=== PATIENT | female | born 1945 | race Caucasian/White ===

== ENCOUNTER 2024-07-23 19:56 | Inpatient (IN) | payer MEDICARE, OTHER ==
[2024-07-23 20:35] LABS: Basophils # (A) 0.09 10*3/uL (0.00-0.10); Basophils % (A) 0.4 %; Eosinophils # (A) 0.09 10*3/uL (0.04-0.35); Eosinophils % (A) 0.4 %; HGB 13.9 g/dL (12.0-15.0); Lymphocytes # (A) 1.77 10*3/uL (0.90-5.00); Lymphocytes % (A) 7.4 %; MCH 31.7 pg (27.0-32.0); MCHC 33.1 g/dL (32.0-37.0); MCV 95.7 fL (80.0-97.0); Mean Platelet Volume 9.6 fL (9.5-12.2); Monocytes % (A) 7.5 %; Neutrophils # (A) 20.07 10*3/uL (1.80-7.70); Neutrophils % (A) 83.8 %; Platelet Count 208 10*3/uL (140-440); RBC 4.39 10*6/uL (4.10-5.20); RDW 13.4 % (11.5-14.5); WBC 23.94 10*3/uL (4.50-10.00)
--- NOTE | 2024-07-23 20:44 | ED ---
General Adult HPI - General Chief complaint: Shortness of Breath Stated complaint: difficulty breathing Time Seen by Provider: 07/23/24 20:02 Source: patient, RN notes reviewed, old records reviewed Mode of arrival: EMS Limitations: no limitations - History of Present Illness Initial comments: 78-year-old female history of asthma COPD presenting for evaluation of cough, dyspnea, fever. Patient states 2 weeks ago she was diagnosed with RSV and COPD exacerbation. She was put on steroids, as well as doxycycline. She states she did improve from this and then over the past 24 hours she developed a worsening cough and fever. Patient was sent over from primary care for evaluation. She denies central chest pain. She does report bilateral lower extremity edema which is chronic and unchanged from baseline. Her cough is productive of yellow sputum. - Related Data Home Medications Medication Instructions Recorded Confirmed Albuterol Inhaler [Ventolin Hfa 2 puff INHALATION RT-Q6H PRN 07/23/24 07/23/24 Inhaler] Budesonide [Pulmicort] 0.5 mg INHALATION RT-BID 07/23/24 07/23/24 Budesonide/Glycopyr/Formoterol 1 puff INHALATION RT-DAILY 07/23/24 07/23/24 [Breztri Aerosphere Inhaler] Cranberry 4,200mg 4,200 mg PO DAILY 07/23/24 07/23/24 EPINEPHrine (Auto Inject) [Epipen] 0.3 mg IM ONCE PRN 07/23/24 07/23/24 Fexofenadine HCl [Karen Allergy] 180 mg PO DAILY PRN 07/23/24 07/23/24 Fish Oil/Dha/Epa [Fish Oil 1,200 1 cap PO DAILY 07/23/24 07/23/24 mg Fish Oil] Furosemide [Lasix] 40 mg PO DAILY 07/23/24 07/23/24 Ipratropium-Albuterol Nebulize 3 ml INHALATION RT-QID PRN 07/23/24 07/23/24 [Duoneb 0.5 mg-3 mg/3 ml Soln] Losartan Potassium [Cozaar] 100 mg PO DAILY 07/23/24 07/23/24 Magnesium 30mg 30 mg PO BID 07/23/24 07/23/24 Mepolizumab [Nucala] 1 dose SQ DIRECTED 07/23/24 07/23/24 Montelukast [Singulair] 10 mg PO DAILY 07/23/24 07/23/24 Multivitamins, Thera [Multivitamin 1 tab PO DAILY 07/23/24 07/23/24 (formulary)] Omeprazole 20 mg PO DAILY 07/23/24 07/23/24 Tolterodine ER [Detrol LA] 4 mg PO DAILY 07/23/24 07/23/24 Ubidecarenone [Coenzyme Q10] 200 mg PO DAILY 07/23/24 07/23/24 Vitamin D3 Complete 1 tab PO DAILY 07/23/24 07/23/24 amLODIPine [Norvasc] 10 mg PO DAILY 07/23/24 07/23/24 traMADol HCL 50 mg PO Q8H PRN 07/23/24 07/23/24 Allergies Allergy/AdvReac Type Severity Reaction Status Date / Time cephalexin Allergy Anaphylaxis Verified 07/23/24 20:28 clarithromycin Allergy Anaphylaxis Verified 07/23/24 20:28 penicillin V Allergy Swelling Verified 07/23/24 20:28 Penicillins Allergy Anaphylaxis Verified 07/23/24 20:28 ranitidine [From Zantac] Allergy Nausea & Verified 07/23/24 20:28 Vomiting & Diarrhea Review of Systems ROS Statement: Those systems with pertinent positive or pertinent negative responses have been documented in the HPI. ROS Other: All systems not noted in ROS Statement are negative. Past Medical History Past Medical History: Asthma, COPD, Deep Vein Thrombosis (DVT), Hypertension, Sleep Apnea/CPAP/BIPAP History of Any Multi-Drug Resistant Organisms: None Reported Past Psychological History: No Psychological Hx Reported Smoking Status: Never smoker Past Alcohol Use History: None Reported Past Drug Use History: None Reported General Exam General appearance: alert, in no apparent distress Head exam: Present: atraumatic, normocephalic Eye exam: Present: normal appearance, PERRL ENT exam: Present: normal exam Neck exam: Present: normal inspection Respiratory exam: Present: respiratory distress, wheezes, decreased breath sounds Cardiovascular Exam: Present: normal rhythm, tachycardia GI/Abdominal exam: Present: soft. Absent: distended, tenderness, guarding Extremities exam: Present: pedal edema Neurological exam: Present: alert, oriented X3, CN II-XII intact. Absent: motor sensory deficit Psychiatric exam: Present: normal affect, normal mood Skin exam: Present: warm, dry, intact. Absent: cyanosis, diaphoretic Course Vital Signs 07/23/24 07/23/24 07/23/24 20:01 20:09 20:52 Temperature 100.6 F H Pulse Rate 111 H 106 H Respiratory 22 22 22 Rate Blood Pressure 118/66 114/56 O2 Sat by Pulse 93 L 95 Oximetry 07/23/24 07/23/24 21:16 21:23 Temperature Pulse Rate 84 100 Respiratory Rate Blood Pressure O2 Sat by Pulse Oximetry Medical Decision Making - Medical Decision Making Was pt. sent in by a medical professional or institution (, [facility], [facility] INT[facility]IVE [facility]ARE [facility] NURSE, urgent care, hospital, or snf...) When possible be specific @ -No Did you speak to anyone other than the patient for history (EMS, parent, family, police, friend...)? What history was obtained from this source @ -No Did you review nursing and triage notes (agree or disagree)? Why? @ -I reviewed and agree with nursing and triage notes Were old charts reviewed (outside hosp., previous admission, EMS record, old EKG, old radiological studies, urgent care reports/EKG's, snf records)? Report findings @ -No old charts were reviewed Differential Dyspnea: Coronary syndrome, arrhythmia, tamponade, asthma, COPD, pulmonary embolism, pneumonia, pneumothorax, pulmonary effusion, anaphylaxis, diabetic ketoacidosis, flailed chest, pulmonary contusion, diaphragmatic rupture, anemia, neuromuscular, this is not meant to be an all-inclusive list. EKG interpreted by me (3pts min.). @Sinus tachycardia rate of 109, OH interval 150, QRS duration 101, QTc 384, PVC present no ST segment elevation. X-rays interpreted by me (1pt min.). @ -Chest x-ray shows left lower lobe infiltrate CT interpreted by me (1pt min.). @ -None done U/S interpreted by me (1pt. min.). @ -None done What testing was considered but not performed or refused? (CT, X-rays, U/S, labs )? Why? @ -None What meds were considered but not given or refused? Why? @ -None Did you discuss the management of the patient with other professionals (professionals i.e. [facility] Turner, [facility] NURSE, lab, RT, psych nurse, social science teacher, apartment community assistant manager, teacher, hospital chief financial officer, director case management)? Give summary @ -Sound physician group Was smoking cessation discussed for >3mins.? @ -No Was critical care preformed (if so, how long)? @Yes, 35 minutes Were there social determinants of health that impacted care today? How? ( Homelessness, low income, unemployed, alcoholism, drug addiction, transportation, low edu. Level, literacy, decrease access to med. care, correction, rehab)? @ -No Was there de-escalation of care discussed even if they declined (Discuss DNR or withdrawal of care, Hospice)? DNR status @ -No What co-morbidities impacted this encounter? (DM, HTN, Smoking, COPD, CAD, Cancer, CVA, ARF, Chemo, Hep., AIDS, mental health diagnosis, sleep apnea, morbid obesity)? @ -Asthma COPD Was patient admitted / discharged? Hospital course, mention meds given and route, prescriptions, significant lab abnormalities, going to OR and other pertinent info. @78-year-old female presenting with cough, fever. Patient is bronchospastic and in moderate respiratory distress. Cough is productive of sputum. X-ray concerning for developing pneumonia. Patient has a significantly elevated white blood cell count at 23,000. She has a lactic acid of 3.3. Normal troponin, normal BMP. Patient admitted for COPD exacerbation and pneumonia with sepsis. Patient does have significant medication allergies and is started on Levaquin in the emergency department. Undiagnosed new problem with uncertain prognosis? @ -No Drug Therapy requiring intensive monitoring for toxicity (Heparin, Nitro, Insulin, Cardizem)? @ -No Were any procedures done? @ -No Diagnosis/symptom? @ -[Pneumonia, sepsis, COPD exacerbation Acute, or Chronic, or Acute on Chronic? @ -Acute Uncomplicated (without systemic symptoms) or Complicated (systemic symptoms)? @Complicated Side effects of treatment? @ -No Exacerbation, Progression, or Severe Exacerbation? @ -No Poses a threat to life or bodily function? How? (Chest pain, [place], [place], pneumonia, PE, COPD, DKA, ARF, appy, cholecystitis, CVA, Diverticulitis, Homicidal, Suicidal, threat to staff... and all critical care pts) @ -[Yes, sepsis, respiratory failure - Lab Data Result diagrams: 07/23/24 20:22 07/23/24 20:22 Lab Results 06/08/1107/23/24 07/23/24 Range/Units 20:22 20:22 20:22 WBC 23.94 H (4.50-10.00) 10*3/uL RBC 4.39 (4.10-5.20) 10*6/uL Hgb 13.9 (12.0-15.0) g/dL Hct 42.0 (37.2-46.3) % MCV 95.7 (80.0-97.0) fL MCH 31.7 (27.0-32.0) pg MCHC 33.1 (32.0-37.0) g/dL Plt Count 208 (140-440) 10*3/uL MPV 9.6 (9.5-12.2) fL Immature Gran % (Auto) 0.5 % Neutrophils % 83.8 % Lymphocytes % 7.4 % Monocytes % 7.5 % Eosinophils % 0.4 % Basophils % 0.4 % Immature Gran # 0.12 H (0.00-0.04) 10*3/uL Neutrophils # 20.07 H (1.80-7.70) 10*3/uL Lymphocytes # 1.77 (0.90-5.00) 10*3/uL Monocytes # 1.80 H (0.20-1.00) 10*3/uL Eosinophils # 0.09 (0.04-0.35) 10*3/uL Basophils # 0.09 (0.00-0.10) 10*3/uL PT 11.3 (10.0-12.5) sec INR 1.0 (<1.2) APTT 20.4 L (22.0-30.0) sec Sodium 136 L (137-145) mmol/L Potassium 4.0 (3.5-5.1) mmol/L Chloride 101 (98-107) mmol/L Carbon Dioxide 24 (22-30) mmol/L Anion Gap 11 mmol/L BUN 14 (7-17) mg/dL Creatinine 0.63 (0.52-1.04) mg/dL Est GFR (CKD-EPI)AfAm >90 (>60 ml/min/1.73 sqM) Est GFR (CKD-EPI)NonAf 86 (>60 ml/min/1.73 sqM) Glucose 119 H (74-99) mg/dL Plasma Lactic Acid Ted (0.7-2.0) mmol/L Calcium 8.7 (8.4-10.2) mg/dL Magnesium 1.8 (1.6-2.3) mg/dL Total Bilirubin 2.1 H (0.2-1.3) mg/dL AST 45 H (14-36) U/L ALT 22 (4-34) U/L Alkaline Phosphatase 94 (38-126) U/L Troponin I (0.000-0.034) ng/mL NT-Pro-B Natriuret Pep 183 pg/mL Total Protein 7.8 (6.3-8.2) g/dL Albumin 4.3 (3.5-5.0) g/dL Influenza Type A (PCR) (Not Detectd) Influenza Type B (PCR) (Not Detectd) RSV (PCR) (Not Detectd) SARS-CoV-2 (PCR) (Not Detectd) 07/23/24 07/23/24 07/23/24 Range/Units 20:22 20:22 20:22 WBC (4.50-10.00) 10*3/uL RBC (4.10-5.20) 10*6/uL Hgb (12.0-15.0) g/dL Hct (37.2-46.3) % MCV (80.0-97.0) fL MCH (27.0-32.0) pg MCHC (32.0-37.0) g/dL Plt Count (140-440) 10*3/uL MPV (9.5-12.2) fL Immature Gran % (Auto) % Neutrophils % % Lymphocytes % % Monocytes % % Eosinophils % % Basophils % % Immature Gran # (0.00-0.04) 10*3/uL Neutrophils # (1.80-7.70) 10*3/uL Lymphocytes # (0.90-5.00) 10*3/uL Monocytes # (0.20-1.00) 10*3/uL Eosinophils # (0.04-0.35) 10*3/uL Basophils # (0.00-0.10) 10*3/uL PT (10.0-12.5) sec INR (<1.2) APTT (22.0-30.0) sec Sodium (137-145) mmol/L Potassium (3.5-5.1) mmol/L Chloride (98-107) mmol/L Carbon Dioxide (22-30) mmol/L Anion Gap mmol/L BUN (7-17) mg/dL Creatinine (0.52-1.04) mg/dL Est GFR (CKD-EPI)AfAm (>60 ml/min/1.73 sqM) Est GFR (CKD-EPI)NonAf (>60 ml/min/1.73 sqM) Glucose (74-99) mg/dL Plasma Lactic Acid Ted 3.3 H* (0.7-2.0) mmol/L Calcium (8.4-10.2) mg/dL Magnesium (1.6-2.3) mg/dL Total Bilirubin (0.2-1.3) mg/dL AST (14-36) U/L ALT (4-34) U/L Alkaline Phosphatase (38-126) U/L Troponin I <0.012 (0.000-0.034) ng/mL NT-Pro-B Natriuret Pep pg/mL Total Protein (6.3-8.2) g/dL Albumin (3.5-5.0) g/dL Influenza Type A (PCR) Not Detected (Not Detectd) Influenza Type B (PCR) Not Detected (Not Detectd) RSV (PCR) Not Detected (Not Detectd) SARS-CoV-2 (PCR) Not Detected (Not Detectd) Critical Care Time Critical Care Time: Yes Total Critical Care Time: 35 Disposition Clinical Impression: Acute exacerbation of chronic obstructive pulmonary disease, Community acquired pneumonia Disposition: ADMITTED IP TO THIS [facility] Condition: Stable Is patient prescribed a controlled substance at d/c from ED?: No Referrals: Magy Mims DO [Primary Care Provider] - 1-2 days Time of Disposition: 21:30
[2024-07-23] MEDS: ACETAMINOPHEN TAB 500 MG TAB PO STA (20:54)
[2024-07-23] MEDS: methylPREDNISolone SOD SUCCI 125 MG/2 ML VIAL IV STA (20:55)
[2024-07-23 20:57] LABS: Partial Thromboplastin Time 20.4 sec (22.0-30.0); Prothrombin Time 11.3 sec (10.0-12.5)
[2024-07-23 20:58] LABS: ALT 22 U/L (4-34); African American GFR (CKD) >90 (>60 ml/min/1.73 sqM); Anion Gap 11 mmol/L; Blood Urea Nitrogen 14 mg/dL (7-17); Calcium 8.7 mg/dL (8.4-10.2); Carbon Dioxide 24 mmol/L (22-30); Chloride 101 mmol/L (98-107); Glucose 119 mg/dL (74-99); Non-African American GFR(CKD) 86 (>60 ml/min/1.73 sqM); Sodium 136 mmol/L (137-145)
[2024-07-23 20:59] LABS: Magnesium 1.8 mg/dL (1.6-2.3); Total Protein 7.8 g/dL (6.3-8.2)
[2024-07-23 21:00] LABS: AST 45 U/L (14-36); Albumin 4.3 g/dL (3.5-5.0); Alkaline Phosphatase 94 U/L (38-126); Total Bilirubin 2.1 mg/dL (0.2-1.3)
--- NOTE | 2024-07-23 21:02 | XR ---
EXAMINATION TYPE: XR chest 2V DATE OF EXAM: 07/23/2024 8:53 PM COMPARISON: None. CLINICAL INDICATION: Female, 78 years old with history of difficulty breathing, TECHNIQUE: XR chest 2V view(s) obtained. FINDINGS: The heart size is normal. The pulmonary vasculature is prominent. Minimal posterior pleural effusions are present. The lateral projection there may be some mild infilt rate posteriorly, likely on the left. Correlate for atelectasis and pneumonia. IMPRESSION: 1. Small posterior left lung infiltrate. Correlate for atelectasis or pneumonia. 2. Minimal posterior pleural effusion [facility], , 07/23/2024 9:00 PM
[2024-07-23 21:04] LABS: NT-Pro-B-Type Natriuretic Pept 183 pg/mL
[2024-07-23 21:11] LABS: Influenza A Not Detected (Not Detectd); Influenza B Not Detected (Not Detectd); RSV Not Detected (Not Detectd)
[2024-07-23] MEDS: ALBUTEROL NEBULIZED 2.5 MG/3 ML INHALATION STA (21:14)
[2024-07-23] MEDS: IPRATROPIUM-ALBUTEROL 3 ML NEB INHALATION STA (21:14)
[2024-07-23] MEDS: LEVOFLOXACIN 500MG-D5W PMX 500 MG in DEXTROSE/WATER 1 100ML.BAG IVPB STA (21:21)
[2024-07-23] MEDS: LACTATED RINGERS 500 ML IV ONE (21:24)
[2024-07-23] MEDS: LACTATED RINGERS 1,000 ML IV SCH (21:24)
[2024-07-23] MEDS ORDERED: NALOXONE 0.4 MG/ML 1 ML VIAL IVP PRN (21:27)
[2024-07-23] MEDS ORDERED: MEPOLIZUMAB 100 MG/ML SQ SCH (22:15)
[2024-07-23] MEDS ORDERED: AUTO INJCT SQ SCH (22:15)
--- NOTE | 2024-07-23 23:09 | P.HPIM ---
History of Present Illness H&P Date: 07/23/24 I have seen and evaluated the patient today. Discussed with the resident and agree with the residents finding and plan as documented in the resident's note. Changes highlighted in blue font. History of present illness; 78-year-old female PMH of hypertension, chronic hypoxic respiratory failure secondary to COPD (maintained at home on occasional use of 3 L nasal cannula), history of DVT who presents to the ED coming from her PCPs office with complaints of shortness of breath, fever and weakness started today. She states she was diagnosed with RSV on 07/09/2024, and was treated with doxycycline. She states she finished a course of medication 5 days ago, and followed up with her PCP yesterday at which point she was feeling much better. However, when she woke up this morning she had notable fatigue, fever and a persistent dry cough. Denies wheezing. Max temperature at home was 101.8 F. Social history: - Smoking history: Denies - Alcohol use: Social - Recreational drug use: Denies Labratory review: -WBC 23.94, hemoglobin 13.9, hematocrit 42.0, platelet 208; sodium 136, potassium 4.0, bicarb 24, BUN 14, creatinine 0.63, lactic acid 3.3, calcium 8.7, magnesium 1.8, total bilirubin 2.1, AST 45, ALT 22, alkaline phosphatase 94 - Troponin <0.012; proBNP 183 -Respiratory viral panel all negative Imaging: -Chest x-ray done in the ED showed a small posterior left lung infiltrate and a minimal posterior pleural effusion -EKG done in the ER independently read interpreted showed heart rate of 109, sinus tachycardia with occasional PVCs, no ST segment elevation or depression seen, no T-wave inversions seen. Vitals: - On arrival: Temperature 100.6 F, blood pressure 118/66, heart rate 111, respiratory 22, SpO2 93% on 3 L nasal cannula - Most recently: Blood pressure 114/56, heart rate 106, respiratory rate 22, SpO2 95% on 3 L of cannula Patient admitted to internal medicine service REVIEW OF SYSTEMS: Pertinent positives and negatives noted in HPI. The rest of the 14-point review of systems is negative. Physical Exam: General: nontoxic, no distress, appears at stated age Derm: warm, dry, intact Head: atraumatic, normocephalic, symmetric Eyes: EOMI, anicteric sclera Mouth: no lip lesion, mucus membranes moist Cardiovascular: S1 S2 reg, no murmur, rubs, or gallops Lungs: Coarse left-sided breath sounds Abdominal: soft, no appreciable organomegaly; tenderness to palpation of the right upper quadrant Extremities: no gross muscle atrophy, no edema, no contractures Neuro: Alert, Oriented, CNII-XII grossly intact, gait normal Psych: well appearing, appropriate affect Assessment and plan 78-year-old female PMH of hypertension, COPD, history of DVT who presents to the ED coming from her PCPs office with complaints of shortness of breath, fever and weakness started today. #Sepsis, likely secondary to community-acquired pneumonia #Lactic acidosis and leukocytosis, secondary to above - Chest x-ray showed evidence of small posterior left lung infiltrate - Continue with levofloxacin (if good clinical response within 2-3 days, total of 5-7 days of antibiotics) - Blood and sputum culture ordered, currently pending - Procalcitonin ordered, currently pending (can continue to monitor procalcitonin every 2 days to evaluate response) - Legionella antigen ordered, currently pending - Continue with LR at 130 cc/h #Mild COPD exacerbation, chronic hypoxic respiratory failure secondary to COPD maintained at home on occasional 3 L nasal cannula - Currently utilizing 3 L nasal cannula at all times to maintain saturations in the 90%'s - Continue DuoNebs every 4 hours and as needed - Continue home Pulmicort twice daily and albuterol inhaler every 6 hours as needed - Wean oxygen as tolerated, maintaining SPO2 88-92% #Hyperbilirubinemia and transaminitis - Right upper quadrant abdominal pain - Total bilirubin 2.1, AST 45 on arrival - Abdominal ultrasound ordered, currently pending - Continue monitor CMP Chronic conditions: #Hypertension #COPD (maintained at home on occasional use of 3 L nasal cannula), not currently in exacerbation #Eosinophilic asthma #Overactive bladder #Type II DM - Continue Norvasc 10 mg daily, Cozaar 100 mg daily, tolterodine ER 4 mg daily, Pulmicort twice daily, Nucala as directed -SSI ACHS, Accu-Cheks, hypoglycemia precautions GI prophylaxis: Continue home omeprazole 1 mg daily DVT prophylaxis: Lovenox 40 mg subcu daily The patient is admitted with an anticipated more than than 2 midnight stay for evaluation of community-acquired pneumonia CODE STATUS: Full code Discussed with: Patient Anticipated discharge place: Home Dictation was produced using [employer] dictation software. please excuse any grammatical, word or spelling errors. Matt Charles MD PGY-1 IM Past Medical History Past Medical History: Asthma, COPD, Deep Vein Thrombosis (DVT), Hypertension, Sleep Apnea/CPAP/BIPAP History of Any Multi-Drug Resistant Organisms: None Reported Past Psychological History: No Psychological Hx Reported Smoking Status: Never smoker Past Alcohol Use History: None Reported Past Drug Use History: None Reported Medications and Allergies Home Medications Medication Instructions Recorded Confirmed Type Albuterol Inhaler [Ventolin Hfa 2 puff INHALATION RT-Q6H PRN 07/23/24 07/23/24 History Inhaler] Budesonide [Pulmicort] 0.5 mg INHALATION RT-BID 07/23/24 07/23/24 History Budesonide/Glycopyr/Formoterol 1 puff INHALATION RT-DAILY 07/23/24 07/23/24 History [Breztri Aerosphere Inhaler] Cranberry 4,200mg 4,200 mg PO DAILY 07/23/24 07/23/24 History EPINEPHrine (Auto Inject) [Epipen] 0.3 mg IM ONCE PRN 07/23/24 07/23/24 History Fexofenadine HCl [Karen Allergy] 180 mg PO DAILY PRN 07/23/24 07/23/24 History Fish Oil/Dha/Epa [Fish Oil 1,200 1 cap PO DAILY 07/23/24 07/23/24 History mg Fish Oil] Furosemide [Lasix] 40 mg PO DAILY 07/23/24 07/23/24 History Ipratropium-Albuterol Nebulize 3 ml INHALATION RT-QID PRN 07/23/24 07/23/24 History [Duoneb 0.5 mg-3 mg/3 ml Soln] Losartan Potassium [Cozaar] 100 mg PO DAILY 07/23/24 07/23/24 History Magnesium 30mg 30 mg PO BID 07/23/24 07/23/24 History Mepolizumab [Nucala] 1 dose SQ DIRECTED 07/23/24 07/23/24 History Montelukast [Singulair] 10 mg PO DAILY 07/23/24 07/23/24 History Multivitamins, Thera [Multivitamin 1 tab PO DAILY 07/23/24 07/23/24 History (formulary)] Omeprazole 20 mg PO DAILY 07/23/24 07/23/24 History Tolterodine ER [Detrol LA] 4 mg PO DAILY 07/23/24 07/23/24 History Ubidecarenone [Coenzyme Q10] 200 mg PO DAILY 07/23/24 07/23/24 History Vitamin D3 Complete 1 tab PO DAILY 07/23/24 07/23/24 History amLODIPine [Norvasc] 10 mg PO DAILY 07/23/24 07/23/24 History traMADol HCL 50 mg PO Q8H PRN 07/23/24 07/23/24 History Allergies Allergy/AdvReac Type Severity Reaction Status Date / Time cephalexin Allergy Anaphylaxis Verified 07/23/24 20:28 clarithromycin Allergy Anaphylaxis Verified 07/23/24 20:28 penicillin V Allergy Swelling Verified 07/23/24 20:28 Penicillins Allergy Anaphylaxis Verified 07/23/24 20:28 ranitidine [From Zantac] Allergy Nausea & Verified 07/23/24 20:28 Vomiting & Diarrhea Physical Exam Vitals: Vital Signs Temp Pulse Resp BP Pulse Ox 07/23/24 21:44 99.9 F H 07/23/24 21:23 100 07/23/24 21:16 84 07/23/24 20:52 106 H 22 114/56 95 07/23/24 20:09 22 07/23/24 20:01 100.6 F H 111 H 22 118/66 93 L Intake and Output 07/23/24 07/23/24 07/23/24 06:59 14:59 22:59 Other: Weight 94.347 kg Results CBC & Chem 7: 07/23/24 20:22 07/23/24 20:22 Labs: Abnormal Lab Results - Last 24 Hours (Table) 07/23/24 07/23/24 07/23/24 Range/Units 20:22 20:22 20:22 WBC 23.94 H (4.50-10.00) 10*3/uL Immature Gran # 0.12 H (0.00-0.04) 10*3/uL Neutrophils # 20.07 H (1.80-7.70) 10*3/uL Monocytes # 1.80 H (0.20-1.00) 10*3/uL APTT 20.4 L (22.0-30.0) sec Sodium 136 L (137-145) mmol/L Glucose 119 H (74-99) mg/dL Plasma Lactic Acid Ted (0.7-2.0) mmol/L Total Bilirubin 2.1 H (0.2-1.3) mg/dL AST 45 H (14-36) U/L /08/11 Range/Units 20:22 WBC (4.50-10.00) 10*3/uL Immature Gran # (0.00-0.04) 10*3/uL Neutrophils # (1.80-7.70) 10*3/uL Monocytes # (0.20-1.00) 10*3/uL APTT (22.0-30.0) sec Sodium (137-145) mmol/L Glucose (74-99) mg/dL Plasma Lactic Acid Ted 3.3 H* (0.7-2.0) mmol/L Total Bilirubin (0.2-1.3) mg/dL AST (14-36) U/L
[2024-07-23] MEDS ORDERED: NON FORMULARY DRUG (Albuterol Inhaler 90 MCG Puff) INHALATION PRN (23:42)
[2024-07-24] MEDS ORDERED: methylPREDNISolone SOD SUCCI 125 MG/2 ML VIAL IV SCH
--- NOTE | 2024-07-24 01:08 | US ---
EXAM: US Abdomen Limited, Right Upper Quadrant CLINICAL HISTORY: ITS.REASON US Reason: Abdominal pain, elevated LFTs Cholecystectomy TECHNIQUE: Real-time ultrasound of the right upper quadrant with image documentation. COMPARISON: No relevant prior studies available. FINDINGS: Limitations: Nurse Wound Care notes: Very limited study due to patient body habitus and overlying bowel. Liver: Echogenic liver. No intrahepatic bile duct dilation. Gallbladder: Absent gallbladder. Common bile duct: Unremarkable as visualized. No stones. No dilation. Common bile duct measures 0.5 cm in diameter. Pancreas: Obscured by bowel gas. Right kidney: Unremarkable. No stones. No hydronephrosis. The right kidney measures 9.5 cm in length. IMPRESSION: 1. No evidence of acute abnormality. 2. Echogenic liver. May reflect fatty liver or other hepatic infiltrative process.
[2024-07-24] MEDS: IPRATROPIUM-ALBUTEROL 3 ML NEB INHALATION SCH (08:12)
[2024-07-24] MEDS: BUDESONIDE 0.5 MG/2 ML NEBU INHALATION SCH (08:12)
[2024-07-24] MEDS: OXYBUTYNIN XL 5 MG TAB.ER.24 PO SCH (08:26)
[2024-07-24] MEDS: amLODIPine 10 MG TAB PO SCH (08:26)
[2024-07-24] MEDS: ENOXAPARIN 40 MG/0.4 ML SYRINGE SQ SCH (08:26)
[2024-07-24] MEDS: LOSARTAN 50 MG TAB PO SCH (08:26)
[2024-07-24] MEDS: MONTELUKAST 10 MG TAB PO SCH (08:26)
[2024-07-24] MEDS: PANTOPRAZOLE 40 MG TABLET PO SCH (08:26)
[2024-07-24] MEDS ORDERED: VANCOMYCIN IV PER PHARMACY 1 EACH MISC MISCELLANE PRN (10:28)
[2024-07-24] MEDS: VANCOMYCIN 1,500 MG in SODIUM CHLORIDE 0.9% 500 ML 500 ML IVPB ONE (11:22)
[2024-07-24 11:28] LABS: Basophils # (A) 0.06 10*3/uL (0.00-0.10); Basophils % (A) 0.2 %; HCT 38.9 % (37.2-46.3); HGB 12.9 g/dL (12.0-15.0); Lymphocytes # (A) 0.44 10*3/uL (0.90-5.00); Lymphocytes % (A) 1.5 %; MCHC 33.2 g/dL (32.0-37.0); MCV 96.5 fL (80.0-97.0); Mean Platelet Volume 9.8 fL (9.5-12.2); Monocytes # (A) 1.02 10*3/uL (0.20-1.00); Monocytes % (A) 3.4 %; Neutrophils % (A) 93.7 %; Platelet Count 172 10*3/uL (140-440); RBC 4.03 10*6/uL (4.10-5.20); RDW 13.1 % (11.5-14.5); WBC 29.89 10*3/uL (4.50-10.00)
[2024-07-24 11:30] LABS: Neutrophils # (A) 28.01 10*3/uL (1.80-7.70)
[2024-07-24 11:46] LABS: ALT 21 U/L (4-34); African American GFR (CKD) >90 (>60 ml/min/1.73 sqM); Albumin 3.5 g/dL (3.5-5.0); Albumin/Globulin Ratio 1.3; Anion Gap 10 mmol/L; Blood Urea Nitrogen 11 mg/dL (7-17); Calcium 9.2 mg/dL (8.4-10.2); Carbon Dioxide 22 mmol/L (22-30); Chloride 104 mmol/L (98-107); Globulin 2.8 g/dL; Glucose 207 mg/dL (74-99); Non-African American GFR(CKD) >90 (>60 ml/min/1.73 sqM); Sodium 136 mmol/L (137-145); Total Bilirubin 1.2 mg/dL (0.2-1.3); Total Protein 6.3 g/dL (6.3-8.2)
[2024-07-24 11:53] LABS: Potassium 3.7 mmol/L (3.5-5.1)
[2024-07-24 11:54] LABS: AST 30 U/L (14-36); Alkaline Phosphatase 54 U/L (38-126)
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
[2024-07-24] MEDS: guaiFENesin SYRUP 100MG/5ML 200 MG/10 ML CUP PO PRN (22:08)
[2024-07-24] MEDS: LEVOFLOXACIN 750MG-D5W PMX 750 MG in DEXTROSE/WATER 1 150ML.BAG IVPB SCH (23:15)
[2024-07-25] MEDS: VANCOMYCIN 1,500 MG in SODIUM CHLORIDE 0.9% 500 ML 500 ML IVPB SCH (02:53)
[2024-07-25 07:22] LABS: HCT 36.1 % (37.2-46.3); HGB 11.6 g/dL (12.0-15.0); MCH 31.1 pg (27.0-32.0); MCHC 32.1 g/dL (32.0-37.0); MCV 96.8 fL (80.0-97.0); Mean Platelet Volume 10.1 fL (9.5-12.2); Platelet Count 184 10*3/uL (140-440); RBC 3.73 10*6/uL (4.10-5.20); RDW 13.4 % (11.5-14.5); WBC 23.51 10*3/uL (4.50-10.00)
[2024-07-25 07:40] LABS: African American GFR (CKD) >90 (>60 ml/min/1.73 sqM); Anion Gap 6 mmol/L; Blood Urea Nitrogen 10 mg/dL (7-17); Calcium 8.7 mg/dL (8.4-10.2); Carbon Dioxide 26 mmol/L (22-30); Chloride 107 mmol/L (98-107); Glucose 94 mg/dL (74-99); Non-African American GFR(CKD) 89 (>60 ml/min/1.73 sqM); Potassium 3.3 mmol/L (3.5-5.1); Sodium 139 mmol/L (137-145)
[2024-07-25] MEDS: POTASSIUM CHLORIDE ER 20 MEQ TAB.ER PO STA (09:28)
--- NOTE | 2024-07-25 13:09 | P.PN ---
Subjective Progress Note Date: 07/25/24 Subjective: Patient seen and examined at bedside. No acute events overnight. Claims that she still having significant cough with sputum production. Pertinent positives and negatives as discussed above, a complete review of systems was performed and all other systems are negative. Vitals Signs Reviewed. General: Nontoxic, no distress, appears at stated age Derm: Warm, dry Head: Atraumatic, normocephalic, symmetric Eyes: EOMI, no lid lag, anicteric sclera Mouth: No lip lesion, mucus membranes moist Cardiovascular: S1S2 reg, no murmur Lungs: Left-sided rhonchi, no accessory muscle use Abdominal: Soft, nontender to palpation, no guarding, no appreciable organomegaly Ext: No gross muscle atrophy, no edema, no contractures Neuro: CN II-XI grossly intact, no focal neuro deficits Psych: Alert, oriented, appropriate affect Data Reviewed Today: Pertinent Labs: WBC 23.51, potassium 3.3, creatinine 0.58, Legionella negative Imaging: No new imaging Assessment and Plan: Active: Sepsis secondary to bacterial pneumonia Leukocytosis, resolving Chronic hypoxic respiratory failure - Patient had recent RSV infection. - MRSA nares pending - Follow sputum cultures and blood cultures - Stopped lactated Ringer's, continue to hold diuretics - Continue levofloxacin 750 IV nightly, vancomycin pharmacy to dose, monitor for renal toxicity - Pulmicort twice daily, DuoNebs every 2 hours as needed, 4 times daily scheduled Hypokalemia - 20 mEq oral potassium given today Transaminitis Hyperbilirubinemia - No right upper quadrant pain Resolved: Lactic acidosis Chronic: Hypertension Asthma, not in exacerbation COPD, not in exacerbation Overactive bladder GERD DVT ppx: Lovenox Code status: Full code Anticipated discharge place: Pending clinical course Anticipated discharge time: Pending clinical course Objective - Vital Signs Vital signs: Vital Signs Temp 97.7 F 07/25/24 07:00 Pulse 80 07/25/24 11:41 Resp 18 07/25/24 07:00 BP 146/72 07/25/24 07:00 Pulse Ox 96 07/25/24 08:13 FiO2 Intake & Output 07/24/24 07/25/24 07/25/24 18:59 06:59 18:59 Intake Total 1680 480 Balance 1680 480 Intake: Oral 1680 480 Other: # Voids 2 4 2 # Bowel Movements 1 - Labs CBC & Chem 7: 06/08/25 06:40 07/25/24 06:40 Labs: Abnormal Lab Results - Last 24 Hours (Table) 07/25/24 07/25/24 Range/Units 06:40 06:40 WBC 23.51 H (4.50-10.00) 10*3/uL RBC 3.73 L (4.10-5.20) 10*6/uL Hgb 11.6 L (12.0-15.0) g/dL Hct 36.1 L (37.2-46.3) % Potassium 3.3 L (3.5-5.1) mmol/L Microbiology - Last 24 Hours (Table) 07/24/24 08:24 Gram Stain - Preliminary Sputum Sputum Culture - Preliminary 07/23/24 20:22 Blood Culture - Preliminary Blood
[2024-07-25] MEDS: BENZONATATE 100 MG CAP PO PRN (14:11)
[2024-07-25] MEDS: ACETAMINOPHEN TAB 325 MG TAB PO PRN (20:48)
[2024-07-25] MEDS: MELATONIN 5 MG TABLET PO PRN (22:59)
[2024-07-26 04:22] LABS: African American GFR (CKD) >90 (>60 ml/min/1.73 sqM); Anion Gap 6 mmol/L; Blood Urea Nitrogen 10 mg/dL (7-17); Calcium 8.7 mg/dL (8.4-10.2); Carbon Dioxide 27 mmol/L (22-30); Chloride 106 mmol/L (98-107); Glucose 92 mg/dL (74-99); Non-African American GFR(CKD) >90 (>60 ml/min/1.73 sqM); Potassium 3.2 mmol/L (3.5-5.1); Sodium 139 mmol/L (137-145)
[2024-07-26] MEDS: IPRATROPIUM-ALBUTEROL 3 ML NEB INHALATION PRN (06:31)
[2024-07-26 07:40] VITALS: RESP 20; TEMP 97.8
[2024-07-26 08:00] LABS: Basophils # (A) 0.04 X 10*3/uL (0.00-0.10); Basophils % (A) 0.3 %; Eosinophils # (A) 0.14 X 10*3/uL (0.04-0.35); Eosinophils % (A) 1.1 %; HCT 33.2 % (37.2-46.3); HGB 10.5 g/dL (12.0-15.0); Lymphocytes # (A) 2.09 X 10*3/uL (0.90-5.00); Lymphocytes % (A) 16.3 %; MCH 31.3 pg (27.0-32.0); MCHC 31.6 g/dL (32.0-37.0); MCV 98.8 FL (80.0-97.0); Mean Platelet Volume 10.5 FL (9.5-12.2); Monocytes # (A) 1.03 X 10*3/uL (0.20-1.00); NRBC Per 100 WBC 0 X 10*3/uL (0.00-0.01); Neutrophils # (A) 9.46 X 10*3/uL (1.80-7.70); Platelet Count 171 X 10*3/uL (140-440); RBC 3.36 X 10*6/uL (4.10-5.20); RDW 13.5 % (11.5-14.5)
[2024-07-26 08:55] LABS: Magnesium 1.8 mg/dL (1.6-2.3)
[2024-07-26] MEDS: POTASSIUM CHLORIDE ER 20 MEQ TAB.ER PO STA (09:14)
[2024-07-26 09:46] VITALS: BP 132/60
[2024-07-26 11:46] VITALS: PULSE 80
--- NOTE | 2024-07-26 13:43 | P.DS ---
Providers Date of admission: 07/23/24 21:27 Expected date of discharge: 07/26/24 Attending physician: Ben Guzman MD Primary care physician: Magy Mims DO Hospital Course: Discharge diagnosis: Sepsis, likely secondary to community-acquired pneumonia Leukocytosis, secondary to above Chronic hypoxic respiratory failure secondary to COPD,on home oxygen 3 L Hyperbilirubinemia and transaminitis Type II Diabetes mellitus Lactic acidosis, resolved Hypertension Eosinophilic asthma Overactive bladder GERD Hospital Course: 78-year-old female PMH of hypertension, chronic hypoxic respiratory failure secondary to COPD (maintained at home on occasional use of 3 L nasal cannula), history of DVT who presents to the ED coming from her PCPs office with complaints of shortness of breath, fever and weakness started today. She states she was diagnosed with RSV on 07/09/2024, and was treated with doxycycline. She states she finished a course of medication 5 days ago, and followed up with her PCP yesterday at which point she was feeling much better. However, when she woke up this morning she had notable fatigue, fever and a persistent dry cough. Initial workup in the ED showed vitals Temperature 100.6 F, blood pressure 118/66, heart rate 111, respiratory 22, SpO2 93% on 3 L nasal cannula. Chest x- ray done in the ED showed a small posterior left lung infiltrate and a minimal posterior pleural effusion. EKG done in the ER independently read interpreted showed heart rate of 109, sinus tachycardia with occasional PVCs, no ST segment elevation or depression seen, no T-wave inversions seen. WBC 23.94, hemoglobin 13.9, hematocrit 42.0, platelet 208; sodium 136, potassium 4.0, bicarb 24, BUN 14, creatinine 0.63, lactic acid 3.3, calcium 8.7, magnesium 1.8, total biliru bin 2.1, AST 45, ALT 22, alkaline phosphatase 94. Troponin <0.012; proBNP 183. Respiratory viral panel all negative. At that point patient was started on levofloxacin and was maintained on 3 L of oxygen via nasal cannula. The next day she was maintained on levofloxacin and vancomycin was added empirically. Further workup showed negative blood culture, negative sputum culture, negative MRSA/MSSA screening. Vancomycin was discontinued. Abdomen bladder ultrasound obtained due to right upper quadrant pain showed no evidence of acute abnormality, Echogenic liver, may reflect fatty liver or other hepatic infiltrative process. Patient has been optimized for discharge. Patient seen at bedside today and is feeling good and excited about discharge. Patient will be discharged today and is given a script for levofloxacin 750 mg p.o. at bedtime 2 days Patient is given a handout for community-acquired pneumonia and is advised to be compliant with medications. Patient is advised to follow-up with PCP in 1-2 days and visiting nurse in 1 to 2 days. Vital signs are reviewed and stable General: mild distress, appears at stated age, on 3L oxygen via nasal cannula Derm: warm, dry, intact Head: atraumatic, normocephalic, symmetric Eyes: EOMI, anicteric sclera Mouth: no lip lesion, mucus membranes moist Cardiovascular: S1 S2 reg, no murmur, rubs, or gallops Lungs: Coarse left-sided breath sounds Abdominal: soft, no appreciable organomegaly; tenderness to palpation of the right upper quadrant Extremities: pitting edema on b/l LE, no gross muscle atrophy, no contractures Neuro: Alert, Oriented, CNII-XII grossly intact, gait normal Psych: well appearing, appropriate affect A total of 30 minutes of time were spent preparing this complex discharge summar y. Patient was discharged on 07/26/2024 at 1100. Dictation was produced using [employer] dictation software. please excuse any grammatical, word or spelling error Rocio Amador MD PGY-1 IM I have seen and evaluated the patient today. Discussed with the resident and agree with the residents finding and plan as documented in the resident's note. Changes highlighted in blue font. Patient Condition at Discharge: Stable Plan - Discharge Summary Discharge Rx Participant: No New Discharge Prescriptions: New Levofloxacin [Levaquin] 750 mg PO HS 2 Days #2 tab Continue Vitamin D3 Complete 1 tab PO DAILY Multivitamins, Thera [Multivitamin (formulary)] 1 tab PO DAILY Ipratropium-Albuterol Nebulize [Duoneb 0.5 mg-3 mg/3 ml Soln] 3 ml INHALATION RT-QID PRN PRN Reason: Shortness Of Breath Fish Oil/Dha/Epa [Fish Oil 1,200 mg Fish Oil] 1 cap PO DAILY Ubidecarenone [Coenzyme Q10] 200 mg PO DAILY Cranberry 4,200mg 4,200 mg PO DAILY Budesonide/Glycopyr/Formoterol [Breztri Aerosphere Inhaler] 1 puff INHALATION RT-DAILY Budesonide [Pulmicort] 0.5 mg INHALATION RT-BID amLODIPine [Norvasc] 10 mg PO DAILY Losartan Potassium [Cozaar] 100 mg PO DAILY Omeprazole 20 mg PO DAILY Montelukast [Singulair] 10 mg PO DAILY Tolterodine ER [Detrol LA] 4 mg PO DAILY Magnesium 30mg 30 mg PO BID traMADol HCL 50 mg PO Q8H PRN PRN Reason: Pain Albuterol Inhaler [Ventolin Hfa Inhaler] 2 puff INHALATION RT-Q6H PRN PRN Reason: Shortness Of Breath Furosemide [Lasix] 40 mg PO DAILY Mepolizumab [Nucala] 1 dose SQ DIRECTED Fexofenadine HCl [Karen Allergy] 180 mg PO DAILY PRN PRN Reason: Allergy Symptoms EPINEPHrine (Auto Inject) [Epipen] 0.3 mg IM ONCE PRN PRN Reason: Anaphylaxis Discharge Medication List Albuterol Inhaler [Ventolin Hfa Inhaler] 2 puff INHALATION RT-Q6H PRN 07/23/24 [History] Budesonide [Pulmicort] 0.5 mg INHALATION RT-BID 07/23/24 [History] Budesonide/Glycopyr/Formoterol [Breztri Aerosphere Inhaler] 1 puff INHALATION RT-DAILY 07/23/24 [History] Cranberry 4,200mg 4,200 mg PO DAILY 07/23/24 [History] EPINEPHrine (Auto Inject) [Epipen] 0.3 mg IM ONCE PRN 07/23/24 [History] Fexofenadine HCl [Karen Allergy] 180 mg PO DAILY PRN 07/23/24 [History] Fish Oil/Dha/Epa [Fish Oil 1,200 mg Fish Oil] 1 cap PO DAILY 07/23/24 [History] Furosemide [Lasix] 40 mg PO DAILY 07/23/24 [History] Ipratropium-Albuterol Nebulize [Duoneb 0.5 mg-3 mg/3 ml Soln] 3 ml INHALATION RT-QID PRN 07/23/24 [History] Losartan Potassium [Cozaar] 100 mg PO DAILY 07/23/24 [History] Magnesium 30mg 30 mg PO BID 07/23/24 [History] Mepolizumab [Nucala] 1 dose SQ DIRECTED 07/23/24 [History] Montelukast [Singulair] 10 mg PO DAILY 07/23/24 [History] Multivitamins, Thera [Multivitamin (formulary)] 1 tab PO DAILY 07/23/24 [History] Omeprazole 20 mg PO DAILY 07/23/24 [History] Tolterodine ER [Detrol LA] 4 mg PO DAILY 07/23/24 [History] Ubidecarenone [Coenzyme Q10] 200 mg PO DAILY 07/23/24 [History] Vitamin D3 Complete 1 tab PO DAILY 07/23/24 [History] amLODIPine [Norvasc] 10 mg PO DAILY 07/23/24 [History] traMADol HCL 50 mg PO Q8H PRN 07/23/24 [History] Levofloxacin [Levaquin] 750 mg PO HS 2 Days #2 tab 07/26/24 [Rx] Follow up Appointment(s)/Referral(s): Magy Mims DO [Primary Care Provider] - 1-2 days (Office stated they will call patient with appointment date and time.) [facility], [NON-STAFF] - 1-2 Days ([facility] will call you to schedule your in home nursing, physical therapy, and occupational therapy visits. ) Patient Instructions/Handouts: Community Acquired Pneumonia (GEN) Discharge Disposition: HOME SELF-CARE
[2024-07-27] MEDS ORDERED: VANCOMYCIN TROUGH DUE 1 EACH MISC MISCELLANE ONE (17:00)
== END 2024-07-26 14:33 | disposition home health service (06) | DRG 871 ==
LOC: EC 19:56 → 4SSUR 21:27
PROVIDERS: ADMIT Internal Medicine; ATTEND Internal Medicine
DX: A41.9 Sepsis, unspecified organism (principal); J15.9 Unspecified bacterial pneumonia; E87.20 Acidosis, unspecified; J90 Pleural effusion, not elsewhere classified; J82.83 Eosinophilic asthma; J44.1 Chronic obstructive pulmonary disease with (acute) exacerbation; E11.9 Type 2 diabetes mellitus without complications; I10 Essential (primary) hypertension; J96.11 Chronic respiratory failure with hypoxia; J44.0 Chronic obstructive pulmonary disease with (acute) lower respiratory infection; R74.01 Elevation of levels of liver transaminase levels; N32.81 Overactive bladder; K21.9 Gastro-esophageal reflux disease without esophagitis; E87.6 Hypokalemia; E80.6 Other disorders of bilirubin metabolism; I49.3 Ventricular premature depolarization; Z99.81 Dependence on supplemental oxygen; Z86.718 Personal history of other venous thrombosis and embolism; Z79.899 Other long term (current) drug therapy; Z88.1 Allergy status to other antibiotic agents; Z88.0 Allergy status to penicillin; Z88.8 Allergy status to other drugs, medicaments and biological substances; Z79.51 Long term (current) use of inhaled steroids
CPT/HCPCS: 36415; 71046; 76705; 80048; 80053; 83605; 83735; 83880; 84145; 84484; 85025; 85027; 85610; 85730; 87040; 87070; 87205; 87449; 87636; 93005; 94640; 94760; 96361; 96365; 96375; 99291